=== PATIENT | male | born 1950 | race Caucasian/White ===

== ENCOUNTER 2016-12-28 07:35 | Day surgery (SDC) | payer MEDICARE, BC ==
--- NOTE | ~2016-12-28 | EGD ---
EGD REPORT [facility] [address] [address] NAME: GENOVEVA FERNANDEZ : 50 STATUS : [facility] [place] PAT#: [id number] AGE: 66 ADM/REG DATE : 12/28/16 MR#: [id number] REPORT SERV DATE: 12/28/16 DICTATED BY: MERCEDES LOUIS DATE: 12/28/16 REPORT STATUS : Draft [facility]ANS[facility] BY: [facility] DATE: 12/28/16 Endoscopy Center Patient Name: Genoveva Fernandez Date of : 1950 Attending MD: MERCEDES LOUIS MD Procedure Date No Time: 12/28/2016 Procedure: Upper GI endoscopy Indications: Epigastric abdominal pain, Dysphagia Referring MD: SIMA MUÑOZ Medicines: Monitored Anesthesia Care Complications: No immediate complications. Procedure: Pre-Anesthesia Assessment: - ASA Grade Assessment: III - A patient with severe systemic disease. After obtaining informed consent, the endoscope was passed under direct vision. Throughout the procedure, the patient's blood pressure, pulse, and oxygen saturations were monitored continuously. The GIF [id number] was introduced through the mouth, and advanced to the second part of duodenum. The upper GI endoscopy was accomplished without difficulty. The patient tolerated the procedure well. Findings: The esophagus and gastroesophageal junction were examined with white light. 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 One tongue of salmon-colored mucosa was present from 37 to 38 cm. The maximum longitudinal extent of these esophageal mucosal changes was 0.5 cm in length. Biopsies were taken with a cold forceps for histology. One superficial esophageal ulcer with no bleeding and no stigmata of recent bleeding was found at the gastroesophageal junction. The lesion was 2 mm in largest dimension. Biopsies were taken with a cold forceps for histology. The entire examined stomach was normal. The cardia and gastric fundus were normal on retroflexion. Localized mildly erythematous mucosa without active bleeding and with no stigmata of bleeding was found in the duodenal bulb. Biopsies were taken with a cold forceps for histology. 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 Biopsied. - Non-bleeding esophageal ulcer at GEJ Biopsied. - Normal stomach. - Erythematous duodenopathy. Biopsied. Recommendation: - Patient has a contact number available for EGD REPORT [address] [address] NAME: GENOVEVA FERNANDEZ : 50 STATUS : [facility] [place] PAT#: [id number] AGE: 66 ADM/REG DATE : 12/28/16 MR#: [id number] REPORT SERV DATE: 12/28/16 DICTATED BY: MERCEDES LOUIS DATE: 12/28/16 REPORT STATUS : Draft TRANSCRIBED BY: [employer] DATE: 12/28/16 emergencies. The signs and symptoms of potential delayed complications were discussed with the patient. Return to normal activities tomorrow. Written discharge instructions were provided to the patient. - Regular diet. - Continue present medications. - Repeat the upper endoscopy for surveillance based on pathology results. - Await pathology results. - Follow an antireflux regimen. Procedure Code(s): --- Professional --- 28262, Esophagogastroduodenoscopy, flexible, transoral; with biopsy, single or multiple Diagnosis Code(s): --- Professional --- K22.70, Gaston's esophagus without dysplasia K22.10, Ulcer of esophagus without bleeding K31.89, Other diseases of stomach and duodenum R10.13, Epigastric pain R13.10, Dysphagia, unspecified CPT copyright 2013 [employer]. All rights reserved. The codes documented in this report are preliminary and upon housing liaison review may be revised to meet current compliance requirements. MERCEDES LOUIS MD 12/28/2016 9:32 AM This report has been signed electronically. Number of Addenda: 0 Note Initiated On: 12/28/2016 9:02 AM Scope Withdrawal Time 0 hours 0 minutes 0 seconds [id number] [place] [id number]
[~2016-12-28 07:35] MED LIST: FLEX PO; HUMULIN-R CONCEN3 ML SC; MICRO-K10 MEQ PO; NOVLOGPUMP SC
== END 2016-12-28 23:59 | disposition home or self-care (01) ==
LOC: DMU 07:35
PROVIDERS: Internal Medicine Gastroenterology
PROC: 0DB98ZX Excision of Duodenum, Via Natural or Artificial Opening Endoscopic, Diagnostic (ICD-10-PCS; principal; 2016-12-28 09:30)
PROC: 0DB58ZX Excision of Esophagus, Via Natural or Artificial Opening Endoscopic, Diagnostic (ICD-10-PCS; 2016-12-28 09:30)
DX: K29.80 Duodenitis without bleeding (principal); K22.10 Ulcer of esophagus without bleeding; K22.70 Barrett's esophagus without dysplasia; K31.89 Other diseases of stomach and duodenum; R10.13 Epigastric pain; R13.10 Dysphagia, unspecified; I25.2 Old myocardial infarction; I25.10 Atherosclerotic heart disease of native coronary artery without angina pectoris; E11.40 Type 2 diabetes mellitus with diabetic neuropathy, unspecified; F17.210 Nicotine dependence, cigarettes, uncomplicated; Z95.1 Presence of aortocoronary bypass graft; Z88.0 Allergy status to penicillin; Z88.2 Allergy status to sulfonamides; Z79.4 Long term (current) use of insulin
CPT/HCPCS: 82962; 88305